=== PATIENT | female | born 1985 | race Two or more races ===

== ENCOUNTER → 2016-06-21 | Day surgery (SDC) | payer MEDICARE, OTHER ==
[~2016-06-21] MED LIST: BUSPIRONE HCL10 MG PO; EFFEXOR75 MG PO; HYDROCODON-ACE1 EAC5 PO; PAXIL30 MG PO; TRAZODONE HCL100 MG PO
--- NOTE | ~2016-06-21 | OR ---
Unit #: [id number] #: [id number] Patient: RAUL VACA [id number] [address] [place], [place] [address] [id number] O MR#: [id number] NAME: RAUL VACA ROOM: Date of Procedure: 06/21/2016 Admission Date: 06/21/2016 Surgeon: Sami Sutton M.D. : 1985 Attending Physician: Saim Sutton M.D. Referring Physician: Sami Sutton M.D. Primary Care Physician: Generic Doctor Not In System OPERATIVE REPORT JOB NOTE: CC: [facility] PREOPERATIVE DIAGNOSES Back pain, radiculopathy, post-laminectomy syndrome, degenerative disk disease. POSTOPERATIVE DIAGNOSES Back pain, radiculopathy, post-laminectomy syndrome, degenerative disk disease. PROCEDURE PERFORMED Lumbar epidural steroid injection with intravenous sedation and fluoroscopic guidance for needle localization. INDICATIONS FOR PROCEDURE This is a 31-year-old female with previously mentioned diagnosis. She had return of back and lower extremity pain. She had issues with medications and p.r.n. epidurals. Last injection done extremely well with single injection. Repeat injection did not result in the same significant improvement she usually gets. We are going to proceed with a second injection based on symptoms, pathology, symptomatology, and available treatment options. DESCRIPTION OF PROCEDURE The patient was placed in a seated position. Standard monitors were applied. 4 mg of Versed were given for sedation and anxiolysis, which were adequate. Vital signs remained stable. Sterile prep and drape then of the lumbar area was performed. The skin at the L4-5 level was localized with 1% lidocaine. An 18-gauge Hustead needle was then advanced via loss of resistance technique and fluoroscopic guidance in toward the epidural space. The patient did not complain of pain or paresthesia during needle advancement. After confirming proper positioning with fluoroscopy and radiographic contrast, 80 mg of Depo-Medrol and 4 mL of 0.125% bupivacaine were deposited. The patient tolerated the procedure otherwise well and was discharged to the recovery room in stable condition. Dictated by... Sami Sutton M.D. LHP/modl Unit #: [id number] #: [id number] Patient: RAUL VACA TD: 06/21/2016 23:35 JOB #: [id number] OPERATIVE REPORT X Sami Sutton MD X PROCEDURE OPERATIVE NOTE
== END | disposition home or self-care (01) ==
LOC: CCSC 10:06
DX: M96.1 Postlaminectomy syndrome, not elsewhere classified (principal); M51.16 Intervertebral disc disorders with radiculopathy, lumbar region
CPT/HCPCS: J1040; J2250

== ENCOUNTER → 2016-12-20 | Day surgery (SDC) | payer MEDICARE, OTHER ==
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
== END | disposition home or self-care (01) ==
LOC: CCSC 08:33
DX: M50.10 Cervical disc disorder with radiculopathy, unspecified cervical region (principal); F41.9 Anxiety disorder, unspecified; F32.9 Major depressive disorder, single episode, unspecified; Z79.899 Other long term (current) drug therapy
CPT/HCPCS: J1040; J2250